=== PATIENT | male | born 1990 | race Caucasian/White ===

== ENCOUNTER 2019-05-10 18:31 | Emergency (ER) | payer MEDICAID, OTHER ==
[2019-05-10 20:17] LABS: ABS Eosinophils 0.1 10^3/ul (0-0.6); ABS Monocytes 0.5 10^3/ul (0-0.8); ABS Neutrophils 3.8 10^3/ul (1.5-7.7); Hematocrit 38 % (42-52); Hemoglobin 13.2 g/dL (14.0-18.0); Lymphocyte % 30.8 %; Mean Corpuscular HGB Conc 35 g/dL (31-36); Mean Corpuscular Hemoglobin 29 pg (27-31); Mean Corpuscular Volume 84 fL (80-94); Mean Platelet Volume 7.4 fL (7.4-10.4); Nucleated Red Blood Cells % 0.1; Platelet Count 196 10^3/uL (150-450); Red Blood Count 4.58 10^6 /uL (4.18-5.48); Red Cell Distribution Width 13 % (10-15); White Blood Count 6.4 10^3/uL (3.5-10.8)
[2019-05-10 20:33] LABS: Albumin 4.4 g/dL (3.2-5.2); Albumin/Globulin Ratio 1.8 (1-3); BUN/Creatinine Ratio 18.3 (8-20); Calcium 9.4 mg/dL (8.6-10.3); EGFR African American 117.1 (>60); EGFR Non-African American 96.7 (>60); Globulin 2.4 g/dL (2-4); Potassium 4.1 mmol/L (3.5-5.0); Total Bilirubin 0.4 mg/dL (0.2-1.0); Total Protein 6.8 g/dL (6.4-8.9)
[2019-05-10] MEDS ORDERED: Ketorolac *IM* INJ* 60 MG/2 ML VIAL IM ONE (21:08)
[2019-05-10] MEDS ORDERED: Metoclopramide TAB* 10 MG PO ONE (21:08)
--- NOTE | 2019-05-10 21:19 | ED ---
Headache - HPI Summary HPI Summary: The patient is a 28-year-old male presenting to [facility] with a chief complaint of persistent headaches for the last three months. He reports that he has been suffering from localized headaches since 02/18/2019, and he has been unable to resolve them using Ibuprofen and Tylenol at home. The pain is located in various areas, and today he is experiencing a left frontal pain. The headaches are sometimes present when he wakes up, or they sometimes develop during the day , but he has suffered from a headache every day for the last few months. He endorses tinnitus more recently without ear ache. He denies any visual changes or unsteady gait. Symptoms currently rated 5/10 in severity. He has been at [facility] for two months. He doesnt feel more stressed out than usual. He states that he hydrates well and works out frequently. The pain is different than eye- straining pain wit wearing glasses. Past medical history significant for alcohol abuse stopped in November 2018, trauma to jaw when younger. Family history of migraines in mother. Current smoker, no current EtOH, no substance use. Medications reviewed. Allergies noted. - History Of Current Complaint Chief Complaint: EDHeadache Stated Complaint: HEADACHE PER PT Time Seen by Provider: 05/10/19 21:06 Hx Obtained From: Patient Onset/Duration: Gradual Onset, Started weeks ago, Still Present Initially Headache Was: Moderate Currently Pain Is: Current Pain Scale(0-10)= - 5 Timing: Constant Character: Throbbing, Typical Headache Aggravating Factor: Nothing Allevating Factors: Nothing Associated Signs And Symptoms: Other (Noted In Comments) - tinnitus; Negative: visual changes, ear ache, unsteady gait - Allergies/Home Medications Allergies/Adverse Reactions: Allergies Allergy/AdvReac Type Severity Reaction Status Date / Time No Known Allergies Allergy Verified 05/10/19 18:41 PMH/Surg Hx/FS Hx/Imm Hx Endocrine/Hematology History: Denies: Hx Diabetes Musculoskeletal History: Reports: Hx of Fracture(s) - jaw when younger Sensory History: Reports: Hx Contacts or Glasses Opthamlomology History: Reports: Hx Contacts or Glasses - Surgical History Surgical History: None Surgery Procedure, Year, and Place: none Infectious Disease History: No Infectious Disease History: Denies: Traveled Outside the [place] in Last 30 Days - Family History Known Family History: Positive: Other - migraines - Social History Alcohol Use: None Alcohol Amount: hx of abuse Hx Substance Use: No Substance Use Type: Reports: None Hx Tobacco Use: Yes Smoking Status (MU): Heavy Every Day Tobacco Smoker Review of Systems Negative: Blurred Vision Positive: Other - tinnitus. Negative: Ear Ache Neurological/Mental Status: Other - Negative: unsteady gait Positive: Headache - left frontal All Other Systems Reviewed And Are Negative: Yes Physical Exam - Summary Physical Exam Summary: Constitutional: Well-developed, Well-nourished, Alert. (-) Distressed Skin: Warm, Dry HENT: Normocephalic; Atraumatic Eyes: Conjunctiva normal, (-) Nystagmus Neck: Musculoskeletal ROM normal neck. (-) JVD, (-) Stridor, (-) Tracheal deviation Cardio: Rhythm regular, rate normal, Heart sounds normal; Intact distal pulses; The pedal pulses are 2+ and symmetric. Radial pulses are 2+ and symmetric. (-) Murmur Pulmonary/Chest wall: Effort normal. (-) Respiratory distress, (-) Wheezes, (-) Rales Abd: Soft, (-) tenderness, (-) Distension, (-) Guarding, (-) Rebound Musculoskeletal: (-) Edema Lymph: (-) Cervical adenopathy Neuro: Alert, Oriented x3, No neuro deficits Psych: Mood and affect Normal GCS: 15 Triage Information Reviewed: Yes Vital Signs On Initial Exam: Initial Vitals Temp Pulse Resp BP Pulse Ox 97.1 F 77 18 147/70 96 05/10/19 18:38 05/10/19 18:38 05/10/19 18:38 05/10/19 18:38 05/10/19 18:38 Vital Signs Reviewed: Yes Procedures - Sedation Patient Received Moderate/Deep Sedation with Procedure: No Diagnostics - Vital Signs Vital Signs Temp Pulse Resp BP Pulse Ox 05/10/19 20:57 98.0 F 66 18 137/79 05/10/19 18:38 97.1 F 77 18 147/70 96 - Laboratory Lab Results: Lab Results 05/10/19 05/10/19 05/10/19 Range/Units 20:08 20:08 20:08 WBC 6.4 (3.5-10.8) 10^3/uL RBC 4.58 (4.18-5.48) 10^6 /uL Hgb 13.2 L (14.0-18.0) g/dL Hct 38 L (42-52) % MCV 84 (80-94) fL MCH 29 (27-31) pg MCHC 35 (31-36) g/dL RDW 13 (10-15) % Plt Count 196 (150-450) 10^3/uL MPV 7.4 (7.4-10.4) fL Neut % (Auto) 59.7 % Lymph % (Auto) 30.8 % [place] % (Auto) 7.9 % Eos % (Auto) 1.0 % Baso % (Auto) 0.6 % Absolute Neuts (auto) 3.8 (1.5-7.7) 10^3/ul Absolute Lymphs (auto) 2.0 (1.0-4.8) 10^3/ul Absolute Monos (auto) 0.5 (0-0.8) 10^3/ul Absolute Eos (auto) 0.1 (0-0.6) 10^3/ul Absolute Basos (auto) 0.0 (0-0.2) 10^3/ul Absolute Nucleated RBC 0.0 10^3/ul Nucleated RBC % 0.1 ESR Pending Carbon Monoxide Screen (<4.0) % Sodium 130 L (135-145) mmol/L Potassium 4.1 (3.5-5.0) mmol/L Chloride 96 L (101-111) mmol/L Carbon Dioxide 27 (22-32) mmol/L Anion Gap 7 (2-11) mmol/L BUN 17 (6-24) mg/dL Creatinine 0.93 (0.67-1.17) mg/dL Est GFR ( Amer) 117.1 (>60) Est GFR (Non-Af Amer) 96.7 (>60) BUN/Creatinine Ratio 18.3 (8-20) Glucose 71 (70-100) mg/dL Lactic Acid 0.9 (0.5-2.0) mmol/L Calcium 9.4 (8.6-10.3) mg/dL Total Bilirubin 0.40 (0.2-1.0) mg/dL AST 35 (13-39) U/L ALT 35 (7-52) U/L Alkaline Phosphatase 66 (34-104) U/L Total Protein 6.8 (6.4-8.9) g/dL Albumin 4.4 (3.2-5.2) g/dL Globulin 2.4 (2-4) g/dL Albumin/Globulin Ratio 1.8 (1-3) 05/10/19 Range/Units 20:08 WBC (3.5-10.8) 10^3/uL RBC (4.18-5.48) 10^6 /uL Hgb (14.0-18.0) g/dL Hct (42-52) % MCV (80-94) fL MCH (27-31) pg MCHC (31-36) g/dL RDW (10-15) % Plt Count (150-450) 10^3/uL MPV (7.4-10.4) fL Neut % (Auto) % Lymph % (Auto) % [place] % (Auto) % Eos % (Auto) % Baso % (Auto) % Absolute Neuts (auto) (1.5-7.7) 10^3/ul Absolute Lymphs (auto) (1.0-4.8) 10^3/ul Absolute Monos (auto) (0-0.8) 10^3/ul Absolute Eos (auto) (0-0.6) 10^3/ul Absolute Basos (auto) (0-0.2) 10^3/ul Absolute Nucleated RBC 10^3/ul Nucleated RBC % ESR Carbon Monoxide Screen <4.0 (<4.0) % Sodium (135-145) mmol/L Potassium (3.5-5.0) mmol/L Chloride (101-111) mmol/L Carbon Dioxide (22-32) mmol/L Anion Gap (2-11) mmol/L BUN (6-24) mg/dL Creatinine (0.67-1.17) mg/dL Est GFR ( Amer) (>60) Est GFR (Non-Af Amer) (>60) BUN/Creatinine Ratio (8-20) Glucose (70-100) mg/dL Lactic Acid (0.5-2.0) mmol/L Calcium (8.6-10.3) mg/dL Total Bilirubin (0.2-1.0) mg/dL AST (13-39) U/L ALT (7-52) U/L Alkaline Phosphatase (34-104) U/L Total Protein (6.4-8.9) g/dL Albumin (3.2-5.2) g/dL Globulin (2-4) g/dL Albumin/Globulin Ratio (1-3) Result Diagrams: 05/10/19 20:08 05/10/19 20:08 Lab Statement: Any lab studies that have been ordered have been reviewed, and results considered in the medical decision making process. Headache Course/Dx - Course Course Of Treatment: 28 y/o male presenting with chronic constant headaches initially onset in 01/2019, currently located in the left frontal region accompanied by tinnitus. Denies any visual changes, unsteady gait. No known trauma. FHx migraines. Physical exam reveals no significant abnormalities, no neuro deficits, no nystagmus. Patient administered Reglan and Toradol. Blood work significant for sodium of 140 and chloride of 96. The patient is a sign- out from Dr. Amos Deras DO, to Dr. Moise Daniel MD, at change of shift at 2200 on 05/10/19, pending Brain CT and disposition. - Diagnoses Provider Diagnoses: Chronic headache Discharge ED - Sign-Out/Discharge Documenting (check all that apply): Sign-Out Patient Signing out patient TO: Moise Daniel - Patient is a sign-out to Dr. Moise Daniel MD, at change of shift at 2200 on 05/10/19, pending Brain CT and disposition. - Discharge Plan Condition: Stable Referrals: No Primary Care Phys,NOPCP [Primary Care Provider] - - Attestation Statements Document Initiated by Scribe: Yes Documenting Scribe: Nanda Farnsworth Provider For Whom Scribe is Documenting (Include Credential): Dr. Amos Deras DO Scribe Attestation: Nanda Abbott, scribed for Dr. Amos Deras DO on 05/10/19 at 2203. Status of Scribe Document: Ready
--- NOTE | 2019-05-10 21:22 | ED ---
Headache - HPI Summary HPI Summary: 28 year old M presenting to [facility] alone complains of intermittent BAIN since February 182018. Patient reports nausea and denies vomiting. He has taken motrin and tylenol which sometimes helps or makes it worse. Pt states he is a patient at [facility] and is unable to get coverage for testing. He is a recovering alcoholic and hasn't drank since November 2018. No SocHx of smoking. He notes occasional cocaine use in the past. The patient rates the pain 5/10 in severity. Symptoms aggravated and alleviated inconsistently by tylenol and motrin. - History Of Current Complaint Chief Complaint: EDHeadache Stated Complaint: HEADACHE PER PT Time Seen by Provider: 05/10/19 21:06 Hx Obtained From: Patient Onset/Duration: Started weeks ago - Since February 18 2019, Still Present Timing: Intermittent, Lasting: Aggravating Factor: Nothing Allevating Factors: Nothing - Allergies/Home Medications Allergies/Adverse Reactions: Allergies Allergy/AdvReac Type Severity Reaction Status Date / Time No Known Allergies Allergy Verified 05/10/19 18:41 PMH/Surg Hx/FS Hx/Imm Hx Endocrine/Hematology History: Denies: Hx Diabetes Cardiovascular History: Denies: Hx Hypertension Infectious Disease History: No Infectious Disease History: Denies: Traveled Outside the [place] in Last 30 Days - Family History Known Family History: Negative: Hypertension, Diabetes Review of Systems Positive: Nausea. Negative: Vomiting Positive: Headache All Other Systems Reviewed And Are Negative: Yes Physical Exam - Summary Physical Exam Summary: VITAL SIGNS: Reviewed. GENERAL: Patient is a well-developed and nourished male who is lying comfortable in the stretcher. Patient is not in any acute respiratory distress. HEAD AND FACE: No signs of trauma. No ecchymosis, hematomas or skull depressions. No sinus tenderness. EYES: PERRLA, EOMI x 2, No injected conjunctiva, no nystagmus. EARS: Hearing grossly intact. Ear canals and tympanic membranes are within normal limits. MOUTH: Oropharynx within normal limits. NECK: Supple, trachea is midline, no adenopathy, no JVD, no carotid bruit, no c- spine tenderness, neck with full ROM. CHEST: Symmetric, no tenderness at palpation. LUNGS: Clear to auscultation bilaterally. No wheezing or crackles. CVS: Regular rate and rhythm, S1 and S2 present, no murmurs or gallops appreciated. ABDOMEN: Soft, non-tender. No signs of distention. No rebound, no guarding, and no masses palpated. Bowel sounds are normal. EXTREMITIES: FROM in all major joints, no edema, no cyanosis or clubbing. NEURO: Alert and oriented x 3. No acute neurological deficits. Speech is normal and follows commands. GCS: 15. SKIN: Dry and warm. Triage Information Reviewed: Yes Vital Signs On Initial Exam: Initial Vitals Temp Pulse Resp BP Pulse Ox 97.1 F 77 18 147/70 96 05/10/19 18:38 05/10/19 18:38 05/10/19 18:38 05/10/19 18:38 05/10/19 18:38 Vital Signs Reviewed: Yes - Stephan Coma Scale Best Eye Response: 4 - Spontaneous Best Motor Response: 6 - Obeys Commands Best Verbal Response: 5 - Oriented Coma Scale Total: 15 Procedures - Sedation Patient Received Moderate/Deep Sedation with Procedure: No Diagnostics - Vital Signs Vital Signs Temp Pulse Resp BP Pulse Ox 05/10/19 20:57 98.0 F 66 18 137/79 05/10/19 18:38 97.1 F 77 18 147/70 96 - Laboratory Lab Results: Lab Results 05/10/19 05/10/19 05/10/19 Range/Units 20:08 20:08 20:08 WBC 6.4 (3.5-10.8) 10^3/uL RBC 4.58 (4.18-5.48) 10^6 /uL Hgb 13.2 L (14.0-18.0) g/dL Hct 38 L (42-52) % MCV 84 (80-94) fL MCH 29 (27-31) pg MCHC 35 (31-36) g/dL RDW 13 (10-15) % Plt Count 196 (150-450) 10^3/uL MPV 7.4 (7.4-10.4) fL Neut % (Auto) 59.7 % Lymph % (Auto) 30.8 % [place] % (Auto) 7.9 % Eos % (Auto) 1.0 % Baso % (Auto) 0.6 % Absolute Neuts (auto) 3.8 (1.5-7.7) 10^3/ul Absolute Lymphs (auto) 2.0 (1.0-4.8) 10^3/ul Absolute Monos (auto) 0.5 (0-0.8) 10^3/ul Absolute Eos (auto) 0.1 (0-0.6) 10^3/ul Absolute Basos (auto) 0.0 (0-0.2) 10^3/ul Absolute Nucleated RBC 0.0 10^3/ul Nucleated RBC % 0.1 ESR Pending Carbon Monoxide Screen (<4.0) % Sodium 130 L (135-145) mmol/L Potassium 4.1 (3.5-5.0) mmol/L Chloride 96 L (101-111) mmol/L Carbon Dioxide 27 (22-32) mmol/L Anion Gap 7 (2-11) mmol/L BUN 17 (6-24) mg/dL Creatinine 0.93 (0.67-1.17) mg/dL Est GFR ( Amer) 117.1 (>60) Est GFR (Non-Af Amer) 96.7 (>60) BUN/Creatinine Ratio 18.3 (8-20) Glucose 71 (70-100) mg/dL Lactic Acid 0.9 (0.5-2.0) mmol/L Calcium 9.4 (8.6-10.3) mg/dL Total Bilirubin 0.40 (0.2-1.0) mg/dL AST 35 (13-39) U/L ALT 35 (7-52) U/L Alkaline Phosphatase 66 (34-104) U/L Total Protein 6.8 (6.4-8.9) g/dL Albumin 4.4 (3.2-5.2) g/dL Globulin 2.4 (2-4) g/dL Albumin/Globulin Ratio 1.8 (1-3) 05/10/19 Range/Units 20:08 WBC (3.5-10.8) 10^3/uL RBC (4.18-5.48) 10^6 /uL Hgb (14.0-18.0) g/dL Hct (42-52) % MCV (80-94) fL MCH (27-31) pg MCHC (31-36) g/dL RDW (10-15) % Plt Count (150-450) 10^3/uL MPV (7.4-10.4) fL Neut % (Auto) % Lymph % (Auto) % [place] % (Auto) % Eos % (Auto) % Baso % (Auto) % Absolute Neuts (auto) (1.5-7.7) 10^3/ul Absolute Lymphs (auto) (1.0-4.8) 10^3/ul Absolute Monos (auto) (0-0.8) 10^3/ul Absolute Eos (auto) (0-0.6) 10^3/ul Absolute Basos (auto) (0-0.2) 10^3/ul Absolute Nucleated RBC 10^3/ul Nucleated RBC % ESR Carbon Monoxide Screen <4.0 (<4.0) % Sodium (135-145) mmol/L Potassium (3.5-5.0) mmol/L Chloride (101-111) mmol/L Carbon Dioxide (22-32) mmol/L Anion Gap (2-11) mmol/L BUN (6-24) mg/dL Creatinine (0.67-1.17) mg/dL Est GFR ( Amer) (>60) Est GFR (Non-Af Amer) (>60) BUN/Creatinine Ratio (8-20) Glucose (70-100) mg/dL Lactic Acid (0.5-2.0) mmol/L Calcium (8.6-10.3) mg/dL Total Bilirubin (0.2-1.0) mg/dL AST (13-39) U/L ALT (7-52) U/L Alkaline Phosphatase (34-104) U/L Total Protein (6.4-8.9) g/dL Albumin (3.2-5.2) g/dL Globulin (2-4) g/dL Albumin/Globulin Ratio (1-3) Result Diagrams: 05/10/19 20:08 05/10/19 20:08 Lab Statement: Any lab studies that have been ordered have been reviewed, and results considered in the medical decision making process. - CT CT Brain CT Interpretation Completed By: Radiologist Summary of CT Findings: IMPRESSION: 1. No acute intracranial hemorrhage. 2. Asymmetry the distension of the right frontal horn. This raises the. possibility of an intraventricular cysts like a neural epithelial cyst. No. obstructive hydrocephalus. has reviewed this report. Headache Course/Dx - Course Assessment/Plan: 28 year old M presenting to [facility] alone complains of intermittent BAIN since February 182018. Patient reports nausea and denies vomiting. He has taken motrin and tylenol which sometimes helps or makes it worse. Pt states he is a patient at [facility] and is unable to get coverage for testing. He is a recovering alcoholic and hasn't drank since November 2018. No SocHx of smoking. He notes occasional cocaine use in the past. The patient rates the pain 5/10 in severity. Symptoms aggravated and alleviated inconsistently by tylenol and motrin. Blood work without a significant abnormality except for slight anemia, sodium 1:30, chloride 96, urinalysis is negative for UTI. Head CT IMPRESSION: 1. No acute intracranial hemorrhage. 2. Asymmetry the distension of the right frontal horn. This raises the possibility of an intraventricular cysts like a neural epithelial cyst. No obstructive hydrocephalus. PE findings: normal exam. GCS 15. Patient was given Toradol for the headache and Reglan for the nausea and the symptoms improved. Because of the abnormal findings and the CT I will discharge the patient home with follow-up with neurology. At this point, I discussed all the findings and test results with the patient. Patient was instructed to return to the emergency room immediately if any of the symptoms return or worsen.Plan of care was discussed with the patient and the patient understands and agrees. All questions were answered at patient satisfaction. Patient understands and agrees. Neurological exam before discharge: Patient is alert and oriented x 3. No acute neurological deficits. Patient's vital signs are stable. Patient is to follow up with [facility] in the next 2 3 days. They understand and agree. The plan of care was discussed with the patient and the patient understands and agrees with the plan of care. All questions were answered at patient satisfaction. There were no further complaints or concerns. - Diagnoses Provider Diagnoses: Chronic headache Discharge ED - Sign-Out/Discharge Documenting (check all that apply): Patient Departure - discharge - Discharge Plan Condition: Stable Disposition: HOME Patient Education Materials: Acute Headache (ED) Referrals: Wood Geiger MD [Medical Doctor] - Additional Instructions: PLEASE FOLLOW UP WITH , NEUROLOGY, WITHIN 2-3 DAYS. RETURN TO THE ED FOR ANY WORSENING OR NEW SYMPTOMS. - Billing Disposition and Condition Condition: STABLE Disposition: Home - Attestation Statements Document Initiated by Scribe: Yes Documenting Scribe: Andrey Lopez Provider For Whom Scribe is Documenting (Include Credential): Dr.Walter Fredy MD Scribe Attestation: I, Andrey Lopez, scribed for Dr.Walter Fredy MD on 05/12/19 at 2030. Scribe Documentation Reviewed: Yes Provider Attestation: The documentation as recorded by the scribe, Andrey Lopez accurately reflects the service I personally performed and the decisions made by me, Dr.Walter Fredy MD Status of Scribe Document: Viewed
[2019-05-10 21:44] LABS: Erythrocyte Sed Rate 3 mm/Hr (0-14)
[2019-05-10 21:58] LABS: Urine Appearance Clear; Urine Bilirubin Negative (Negative); Urine Blood Negative (Negative); Urine Color Colorless; Urine Glucose Negative (Negative); Urine Ketones Negative (Negative); Urine Nitrite Negative (Negative); Urine Protein Negative (Negative); Urine Specific Gravity 1.002 (1.010-1.030); Urine Urobilinogen Negative (Negative)
[2019-05-11 00:06] VITALS: BP 123/72
== END 2019-05-10 23:46 | disposition home or self-care (01) ==
LOC: ED 18:31
DX: R51 Headache (principal); R11.0 Nausea
CPT/HCPCS: 36415; 70450; 80053; 81003; 82375; 83605; 85025; 85652; 96372; 99283; A9270-GY; J1885